=== PATIENT | male | born 1950 | race Hispanic/Latino ===

== ENCOUNTER 2018-01-25 04:02 | Observation (INO) | payer OTHER, MEDICARE ==
[~2018-01-25] VITALS: Ht 170.2 cm; Wt 99.3 kg
[2018-01-25] MEDS ORDERED: ASPIRIN 81 MG CHEW TAB PO ONE (04:30)
[2018-01-25 04:59] LABS: BASOPHILS # (AUTO) 0.1 (0.0-0.1); BASOPHILS % 0.6 % (0.0-1.0); EOSINOPHILS # (AUTO) 0.6 (0.0-0.4); EOSINOPHILS % 5.2 % (0.0-6.0); HEMATOCRIT 45.1 % (38.2-49.6); HEMOGLOBIN 15.3 g/dL (14.0-18.0); LYMPHOCYTES # (AUTO) 3.7 (1.0-3.2); LYMPHOCYTES % 34.4 % (18.0-39.1); MEAN CORPUSCULAR HEMOGLOBIN 29.5 pg (28-32); MEAN CORPUSCULAR HGB CONC 33.9 g/dL (31-35); MEAN CORPUSCULAR VOLUME 87.1 fL (81-99); MONOCYTES # (AUTO) 0.7 (0.2-0.8); MONOCYTES % 6.2 % (4.4-11.3); NEUTROPHILS # (AUTO) 5.7 (2.1-6.9); NEUTROPHILS % 53.3 % (38.7-80.0); PLATELET COUNT 249 x10e3/uL (140-360); RED BLOOD COUNT 5.18 x10e6/uL (4.3-5.7); RED CELL DISTRIBUTION WIDTH 13.2 % (11.7-14.4)
[2018-01-25 05:05] LABS: BILIRUBIN,URINE NEGATIVE (NEGATIVE); CLARITY,URINE CLEAR (CLEAR); COLOR,URINE YELLOW (YELLOW); KETONES,URINE NEGATIVE (NEGATIVE); LEUKOCYTE ESTERASE ,URINE NEGATIVE (NEGATIVE); NITRITE,URINE NEGATIVE (NEGATIVE); PROTEIN,URINE DIPSTICK NEGATIVE (NEGATIVE); URINE UROBILINOGEN 0.2 mg/dL (0.2 - 1); WBC,URINE (MAN) 0-5 /HPF (0-5)
[2018-01-25 05:06] LABS: MUCUS,URINE FEW (RARE)
[2018-01-25 05:10] LABS: INR 1.03; PROTHROMBIN TIME 12.7 seconds (11.9-14.5)
[2018-01-25 05:11] LABS: PARTIAL THROMBOPLASTIN TIME 29.2 seconds (23.8-35.5)
[2018-01-25 05:18] LABS: ALANINE AMINOTRANSFERASE 27 IU/L (0-55); ALBUMIN 3.9 g/dL (3.5-5.0); ALBUMIN/GLOBULIN RATIO 1.1 (0.8-2.0); ALKALINE PHOSPHATASE 85 IU/L (40-150); ANION GAP 16.2 mmol/L (8-16); BLOOD UREA NITROGEN 22 mg/dL (7-26); BUN/CREATININE RATIO 24 (6-25); CALCIUM 9.3 mg/dL (8.4-10.2); CARBON DIOXIDE 24 mmol/L (22-29); CHLORIDE 105 mmol/L (98-107); CREATINE KINASE 125 IU/L (30-200); CREATININE, SERUM 0.92 mg/dL (0.72-1.25); EST GLOMERULAR FILTRATION RATE > 60 ML/MIN (60-); GLUCOSE 106 mg/dL (74-118); MAGNESIUM 2.2 MG/DL (1.3-2.1); POTASSIUM 4.2 mmol/L (3.5-5.1); SODIUM 141 mmol/L (136-145)
[2018-01-25] MEDS ORDERED: TRAZODONE HCL150 MG PO (05:32)
[2018-01-25 05:37] LABS: THYROID STIMULATING HORMONE 1.919 uIU/mL (0.350-4.940)
--- NOTE | 2018-01-25 05:47 | Diagnostic Imaging Report ---
EXAM: CHEST SINGLE (PORTABLE), AP 1 view INDICATION: Elevated blood pressure, headache COMPARISON: None FINDINGS: LINES/TUBES: None LUNGS: No consolidations or edema. PLEURA: No effusions or pneumothorax. HEART AND MEDIASTINUM: Normal size and contour. BONES AND SOFT TISSUES: No acute findings. IMPRESSION: No acute thoracic abnormality. Signed by: Dr. Verenice Velazquez M.D. on 01/25/2018 5:43 AM
[2018-01-25] MEDS ORDERED: ONDANSETRON HCL INJ 2 MG/ML VIAL IV PRN (06:00)
[2018-01-25] MEDS ORDERED: MORPHINE SULFATE 2 MG/ML SYR IV PRN (06:00)
[2018-01-25 07:35] VITALS: BP 117/68
[2018-01-25 07:41] VITALS: BP 117/68
[2018-01-25 07:53] VITALS: BP 117/68
[2018-01-25] MEDS ORDERED: ASPIRIN 81 MG ENTERIC COATED PO SCH (09:00)
[2018-01-25] MEDS ORDERED: FAMOTIDINE 20 MG/2 ML VIAL IV SCH (09:00)
[2018-01-25 12:24] VITALS: BP 112/65
[2018-01-25 12:43] LABS: CREATINE KINASE 106 IU/L (30-200)
--- NOTE | 2018-01-25 13:40 | Consultation ---
DATE OF CONSULTATION: January 25, 2018 CARDIOLOGY CONSULTATION REASON FOR CONSULTATION: Chest pain. HISTORY OF PRESENT ILLNESS: Mr. Campbell is a 67-year-old gentleman who is at baseline otherwise relatively healthy. He has been complaining of several week onset of nighttime warmth, flushing in the face and associated with some slight shortness of breath and has to get up three to four times at night to put on the AC. He reports that these episodes have tend to occur especially at nighttime and has been slowly increasing in frequency. Yesterday, he also reported episode of chest discomfort that seems to be positional, tightness radiating across the chest and lasted several minutes not associated with any diaphoresis, nonexertional in nature and nonpruritic in nature. The pain largely subsided on its own and was only very mild according to the patient. He came to the hospital for further evaluation, but maintains that his main complaint is the overwhelming sensation of intermittent flushing in his face. Patient denies taking any supplements and denies any changes in dietary habits. He denies any unexplained weight loss or gain. He denies any rashes or skin breakdowns. He, in terms of health maintenance, has had a colonoscopy eight years ago, was found to have polyps, but has not had any repeat at that time. Patient does report having noted that the stream of his urine has gotten worse over time, but this has been a gradual issue consistent for perhaps prostatic hypertrophy. UA is unremarkable. Denies any fevers or chills. PAST MEDICAL HISTORY: None. PAST SURGICAL HISTORY: None. FAMILY HISTORY: Mother alive at 86, had hypertension, history of Sjogren with type 2 diabetes. Father alive at 86 with hypertension and paternal grandfather lived all the way to 103. There is no premature family history of coronary artery disease. SOCIAL HISTORY: He is a lifelong nonsmoker. Denies any alcohol or illicit drug use. ALLERGIES: NO KNOWN DRUG ALLERGIES. HOME MEDICATIONS: None. REVIEW OF SYSTEMS GENERAL: Positive for flushing. Denies any fevers or chills. Positive for some slight night sweats and heat intolerance. HEENT: No headaches, visual complaints, sore throat, or stuffy nose. RESPIRATORY: Denies any pleuritic chest pain or exertional dyspnea. CARDIOVASCULAR: As per HPI. Denies any palpitations, syncope, or near syncope. GI: Denies any abdominal pain, nausea, or vomiting. Does have hemorrhoids with some blood upon wiping, but this is chronic. : Positive for nocturia and decreased strength of urinary stream and BPH type symptoms. No pyuria. MUSCULOSKELETAL: Denies any back pains, knee pains and aches. PERIPHERAL VASCULAR: Denies any edema or typical claudication symptoms. NEUROLOGIC: Denies any focal weakness, numbness, tingling, seizures, headaches, TIA, or stroke. SKIN: No rashes. PHYSICAL EXAMINATION VITALS: Height of 67 inches, weight of 219 pounds, BMI is 34.3, temperature of 95.9, pulse of 57, respiratory rate 18, O2 sat 96% on room air, and blood pressure 117/68. GENERAL: This is a well-nourished, well-developed gentleman who is currently in no apparent distress. HEENT: Pupils equal, round and reactive to light. Extraocular movements are intact. Oropharynx is clear with fair to poor dentition. NECK: No elevation of jugular venous pulsation. No carotid bruit. No lymphadenopathy. CARDIOVASCULAR: Regular rate and rhythm. Normal S1 and S2. Soft 1/6 systolic murmur at the left lower sternal border. LUNGS: Clear to auscultation bilateral with good airy entry. ABDOMEN: Soft, nontender, and nondistended. Normoactive bowel sounds. No hepatosplenomegaly. BACK: No costovertebral angle tenderness. EXTREMITIES: Warm with 2+ bilateral radial pulses, 2+ bilateral femoral pulses, and 1 to 2+ bilateral pedal pulses. There is no edema. NEUROLOGIC: Cranial nerves II through XII are intact. Strength is 5/5 and grossly nonfocal. PSYCH: Normal fluent speech. Appropriate affect. No anxiety or delusions. LABS: White count 10.7, hemoglobin 15.3, hematocrit 45.1, and platelets of 249. Sodium 141, potassium 4.2, chloride 105, bicarb 24, BUN 22, creatinine 0.92, glucose of 106, calcium of 9.3, magnesium 2.2, AST 21, ALT 27, alkaline phosphatase 85, total bili 0.3, total protein 7.3, and albumin of 3.9. CK is 125, MB of 4, and troponin is less than 0.01. TSH is 1.919. INR is 1.03. UA shows 0-5 white cells. Chest x-ray is unremarkable. EKG reveals sinus rhythm, normal axis, and no ST-T wave changes. DIAGNOSES 1. Chest pain symptom, largely atypical. 2. Intermittent facial flushing and dyspnea. 3. Mild leukocytosis. 4. Benign prostatic hyperplasia symptoms by history. PLAN/RECOMMENDATIONS 1. From a cardiovascular standpoint, patient's symptom complex is largely atypical and with normal EKG and cardiac biomarkers and symptoms going on for several weeks. I do not think this is necessarily an acute coronary syndrome per se; however, he would benefit from ischemic risk stratification. 2. We will defer an ischemic risk stratification with a treadmill stress test as our current machine is out of service, here next time. 3. We will recommend echocardiogram workup. 4. We will followup on urine culture. 5. Telemetry monitoring thus far shows no atrial or unusual arrhythmias. 6. Overall, we will discuss with primary team. I believe further evaluation could be continued as an outpatient basis. 7. Patient may benefit from health maintenance update perhaps with colonoscopy, etc. Job#: [id number] CHARY
--- OUTSIDE RECORDS SUMMARY | 2018-02-22 04:10 | XMS REPORT ---
Author Author [facility] Address Unknown Phone Unavailable Care Team Providers Care Upholstery Restorer Name Role Phone Ted BUCIO Unavailable Unavailable Mimi RICHARDSON Unavailable Unavailable Problems This patient has no known problems. Allergies, Adverse Reactions, Alerts This patient has no known allergies or adverse reactions. Medications This patient has no known medications. Results Test Description Test Time Test Comments Text Results Atomic Results Result Comments CHEST 2 VIEWS 2018-01-26 03:06:00 [place] [address] Patient Name: GUSTAVO BARTH MR #: [id number] : 1950 Age/Sex: 67/M Req #: [id number] Adm Physician: Ordered by: DENI BUCIO MD Report #: [id number] Location: ER Room/Bed: Procedure: [id number] DX/CHEST 2 VIEWS Exam Date: Exam Time: REPORT STATUS: Signed EXAM: CHEST 2 VIEWS, PA and lateral INDICATION: Anxiety, shortness of breath COMPARISON: AP view of the chest January 25, 2018 FINDINGS: LINES/TUBES: None LUNGS: No consolidations or edema. PLEURA: No effusions or pneumothorax. HEART AND MEDIASTINUM: Normal size and contour. BONES AND SOFT TISSUES: No acute findings. IMPRESSION: No acute thoracic abnormality. Signed by: Dr. Gabby Velazquez M.D. on 01/26/2018 3:07 AM Dictated By: GABBY VELAZQUEZ MD 6 Transcribed By: RUSTY on 01/26/18306 COPY TO: DENI BUCIO MD CHEST SINGLE (PORTABLE) 2018-01-25 05:42:00 [place] [address] Patient Name: GUSTAVO BARTH MR #: [id number] : 1950 Age/Sex: 67/M Req #: [id number] Adm Physician: Ordered by: DENI BUCIO MD Report #: [id number] Location: ER Room/Bed: Procedure: [id number] DX/CHEST SINGLE (PORTABLE) Exam Date: 01/25/18 Exam Time: 0510 REPORT STATUS: Signed EXAM: CHEST SINGLE (PORTABLE), AP 1 view INDICATION: Elevated blood pressure, headache COMPARISON: None FINDINGS: LINES/TUBES: None LUNGS: No consolidations or edema. PLEURA: No effusions or pneumothorax. HEART AND MEDIASTINUM: Normal size and contour. BONES AND SOFT TISSUES: No acute findings. IMPRESSION: No acute thoracic abnormality. Signed by: Dr. Gabby Velazquez M.D. on 01/25/2018 5:43 AM Dictated By: GABBY VELAZQUEZ MD 2 Transcribed By: RUSTY on 01/25/18542 COPY TO: DENI BUCIO MD SHOULDER LEFT COMPLETE [place] [address] Patient Name: GUSTAVO BARTH MR #: [id number] : 1950 Age/Sex: 66/M Req #: [id number] Adm Physician: Ordered by: RIDDHI RICHARDSON MD Report #: [id number] Location: ER Room/Bed: Procedure: [id number] DX/SHOULDER LEFT COMPLETE Exam Date: 04/08/17 Exam Time: 2239 REPORT STATUS: Signed SHOULDER LEFT COMPLETE HISTORY: Status post fall COMPARISON: None FINDINGS: Bones: No displaced fracture. Osseous alignment is within normal limits. Joints: Mild degenerative changes of the left acromioclavicular joint Soft tissues: The soft tissues appear unremarkable. IMPRESSION: No acute radiographic abnormality. Signed by: Dr. Eugenio De M.D. on 04/08/2017 10:59 PM Dictated By: EUGENIO SCHWARTZ MD 58 Transcribed By: RUSTY on 04/08/172258 COPY TO: RIDDHI RICHARDSON MD CT BRAIN [place] [address] Patient Name: GUSTAVO BARTH MR #: [id number] : 1950 Age/Sex: 66/M Req #: [id number] Adm Physician: Ordered by: RIDDHI RICHARDSON MD Report #: [id number] Location: ER Room/Bed: Procedure: [id number] CT/CT BRAIN WO Exam Date: 04/08/17 Exam Time: 2226 REPORT STATUS: Signed EXAMINATION: Head CT without contrast. HISTORY:Status post fall. COMPARISON:None. TECHNIQUE: Multidetector axial images were obtained from the foramen magnum to the vertex without contrast. The images were reconstructed u sing brain and bone algorithms. Thin section brain images were reformatted into coronal and sagittal planes. Intravenous contrast: None IMAGE QUALITY: Acceptable. FINDINGS: Skull/scalp: No abnormality. Parenchyma: Focal hypodensity in posterior aspect of bilateral lentiform nucleus either represents prominent perivascular space or old lacunar infarct. No acute hemorrhage, mass or acute major vascular territorial infarct. Arteries: No density suggestive of thrombosis. Dural sinuses: No abnormal density suggestive of thrombosis. Ventricles: No hydrocephalus or displacement. Extra-axial spaces: No abnormal density. Brain volume: Moderate generalized, predominantly bilateral frontal cerebral volume loss. Craniocervical junction: No mass, Chiari malformation, or basilar invagination. Sella: No mass. Paranasal/mastoid sinuses: Imaged portions unremarkable. IMPRESSION: No acute intracranial abnormality, particularly no acute hemorrhage, mass or acute major vascular territorial infarct. Old lacunar infarct vs prominent perivascular space in bilateral lentiform nucleus. Moderate predominantly bilateral frontal cerebral volume loss. Signed by: Dr. Michelle Wu M.D. on 04/08/2017 11:04 PM Dictated By: MICHELLE WU MD 03 Transcribed By: RUSTY on 04/08/172303 COPY TO: RIDDHI RICHARDSON MD CT CERVICAL SPINE WO [place] [address] Patient Name: GUSTAVO BARTH MR #: [id number] : 1950 Age/Sex: 66/M Req #: [id number] Adm Physician: Ordered by: RIDDHI RICHARDSON MD Report #: [id number] Location: ER Room/Bed: Procedure: [id number] CT/CT CERVICAL SPINE WO Exam Date: 04/08/17 Exam Time: 2226 REPORT STATUS: Signed History: Status post fall. Comparison studies: None Technique: Axial images were obtained through the cervical region.. Coronal and sagittal images reconstructed from the axial data.. Intravenous contrast: None Findings: Fractures: None. Soft tissue injuries: None. Atlantoaxial articulation: Intact. Alignment: Loss of normal cervical lordosis is either positional or due to muscle spasm. No scoliosis. Cervicomedullary junction: No abnormalities. The foramen magnum is patent. Soft tissues: No abnormalities. Vertebrae: No fractures, infection or neoplasm. Degenerative changes: C2-C3: Severe left foraminal stenosis due to facet and uncovertebral arthrosis. C3-C4: Mild right and severe left foraminal stenosis due to facet and uncovertebral arthrosis. C4-C5: Posterior disc osteophyte complex results in mild canal stenosis. Mild right and severe left foraminal stenosis due to facet and uncovertebral arthrosis. C5-C6: Posterior disc osteophyte complex results in mild canal stenosis. Bilateral moderate foraminal stenosis due to facet and uncovertebral arthrosis. Moderate degenerative disc disease with decreased intervertebral disc space, endplate sclerosis and anterior vertebral osteophyte. C6-C7: Posterior disc osteophyte complex results in mild canal stenosis. Mild bilateral foraminal stenosis due to facet and uncovertebral arthrosis. Moderate degenerative disc disease with decreased intervertebral disc space, endplate sclerosis and anterior vertebral osteophyte. C7-T1: Mild left foraminal stenosis due to facet and uncovertebral arthrosis. IMPRESSION: 1. No acute cervical spine fracture. Loss of normal cervical lordosis is either positional or due to muscle spasm. 2. Ligament, spinal cord and or vascular abnormalities cannot be excluded on the basis of this examination. 3. Cervical spondylosis as detailed above. Signed by: Dr. Michelle Wu M.D. on 04/08/2017 11:11 PM Dictated By: MICHELLE WU MD 10 Transcribed By: RUSTY on 04/08/172310 COPY TO: RIDDHI RICHARDSON MD
--- NOTE | 2018-03-09 03:02 | Discharge Summary ---
CHIEF COMPLAINT: Chest discomfort. FINAL DIAGNOSES 1. Hypertension. 2. Atypical chest pain. A 67-year-old male, no known past medical history brought to the ER complaining of intermittent midsternal chest discomfort associated shortness of breath for 2 weeks. No relation to activity or food, has a positive family history of coronary artery disease. Noted to have a maternal uncle, who age in the 60s from an ID. Underwent review and evaluation in the emergency room. The patient admitted for treatment, evaluation regarding atypical chest pain, rule out ischemia questionable GERD. Will be admitted for observation. Will be monitoring cardiac enzymes. Requested cardiology follow. While in observation, EKGs are showing sinus bradycardia. He was given IV fluids. Given medications for pain management was given nitroglycerin 0.4 mg q.5 minutes x3 for chest pain. Also receiving medications to stabilize his BP. Cardiac was ruled out. He was cleared for release, to be followed out further on outpatient basis and the patient was discharged on 01/25/2018 in stable condition. With discharge, the patient will continue on a cardiac diet. No equipment or supplies necessary drains or James needed. Activity level was directed by me, as well as by Dr. Jasso. He will be following back up with Dr. Jasso in his office within 1 week to undergo an outpatient stress test. Patient will be following up back with me in my office within 1-2 weeks. No prescriptions were written at the time of discharge and it was noted the patient was taking no medications prior to admission. He was instructed that if he was to have further recurrence of similar symptoms before his follow up with myself or with Dr. Jasso that he needed to report to the emergency room. Dictated By: REBECA Saavedra Job#: [id number] CQ
== END 2018-01-25 13:48 | disposition home or self-care (01) ==
LOC: ER 04:02 → ERHOLD 05:55 → IMCU 06:21
DX: R07.89 Other chest pain (principal); I10 Essential (primary) hypertension; R00.1 Bradycardia, unspecified; D72.829 Elevated white blood cell count, unspecified; R23.2 Flushing; N40.0 Benign prostatic hyperplasia without lower urinary tract symptoms; Z82.49 Family history of ischemic heart disease and other diseases of the circulatory system
CPT/HCPCS: 36415; 71045; 80053; 81001; 82550; 82553; 83735; 84443; 84484; 85025; 85610; 85730; 87086; 93005; 94760; 99284; G0378

== ENCOUNTER 2018-01-25 22:57 | Emergency (ER) | payer OTHER ==
[~2018-01-25] VITALS: Ht 170.2 cm; Wt 99.3 kg
[~2018-01-25 22:57] MED LIST: TRAZODONE HCL150 MG PO
[2018-01-26 01:29] LABS: INR 1.04; PROTHROMBIN TIME 12.8 seconds (11.9-14.5)
[2018-01-26 01:30] LABS: PARTIAL THROMBOPLASTIN TIME 29.6 seconds (23.8-35.5)
[2018-01-26 01:37] LABS: CREATINE KINASE 133 IU/L (30-200)
[2018-01-26 01:46] LABS: BASOPHILS # (AUTO) 0.1 (0.0-0.1); BASOPHILS % 0.4 % (0.0-1.0); EOSINOPHILS # (AUTO) 0.5 (0.0-0.4); EOSINOPHILS % 3.8 % (0.0-6.0); HEMATOCRIT 45.1 % (38.2-49.6); HEMOGLOBIN 15.4 g/dL (14.0-18.0); LYMPHOCYTES # (AUTO) 2.8 (1.0-3.2); LYMPHOCYTES % 23.5 % (18.0-39.1); MEAN CORPUSCULAR HEMOGLOBIN 29.4 pg (28-32); MEAN CORPUSCULAR HGB CONC 34.1 g/dL (31-35); MEAN CORPUSCULAR VOLUME 86.2 fL (81-99); MONOCYTES # (AUTO) 0.7 (0.2-0.8); MONOCYTES % 6.1 % (4.4-11.3); NEUTROPHILS # (AUTO) 7.8 (2.1-6.9); PLATELET COUNT 279 x10e3/uL (140-360); RED BLOOD COUNT 5.23 x10e6/uL (4.3-5.7); RED CELL DISTRIBUTION WIDTH 13.3 % (11.7-14.4)
[2018-01-26 02:00] LABS: ALANINE AMINOTRANSFERASE 29 IU/L (0-55); ALBUMIN 4.2 g/dL (3.5-5.0); ALBUMIN/GLOBULIN RATIO 1.2 (0.8-2.0); ALKALINE PHOSPHATASE 83 IU/L (40-150); ANION GAP 16.9 mmol/L (8-16); BLOOD UREA NITROGEN 18 mg/dL (7-26); BUN/CREATININE RATIO 20 (6-25); CALCIUM 9.5 mg/dL (8.4-10.2); CARBON DIOXIDE 21 mmol/L (22-29); CHLORIDE 106 mmol/L (98-107); EST GLOMERULAR FILTRATION RATE > 60 ML/MIN (60-); GLUCOSE 100 mg/dL (74-118); POTASSIUM 3.9 mmol/L (3.5-5.1); SODIUM 140 mmol/L (136-145)
--- NOTE | 2018-01-26 03:11 | Diagnostic Imaging Report ---
EXAM: CHEST 2 VIEWS, PA and lateral INDICATION: Anxiety, shortness of breath COMPARISON: AP view of the chest January 25, 2018 FINDINGS: LINES/TUBES: None LUNGS: No consolidations or edema. PLEURA: No effusions or pneumothorax. HEART AND MEDIASTINUM: Normal size and contour. BONES AND SOFT TISSUES: No acute findings. IMPRESSION: No acute thoracic abnormality. Signed by: Dr. Verenice Velazquez M.D. on 01/26/2018 3:07 AM
[2018-01-26] MEDS ORDERED: DIAZEPAM 5 MG TAB PO STA (03:14)
== END 2018-01-26 03:27 | disposition home or self-care (01) ==
LOC: ER 22:57
DX: R06.00 Dyspnea, unspecified (principal); F41.1 Generalized anxiety disorder
CPT/HCPCS: 36415; 71046; 80053; 82550; 82553; 84484; 85025; 85379; 85610; 85730; 93005; 99284

== ENCOUNTER 2019-09-17 11:38 | Emergency (ER) | payer MEDICARE, OTHER ==
[~2019-09-17] VITALS: Ht 172.7 cm; Wt 88.9 kg
--- OUTSIDE RECORDS SUMMARY | 2019-09-17 11:42 | XMS REPORT ---
Author Author GUSTAVO KING Organization Unknown Address Unknown Phone Care Team Providers Care Crusher Dry Ground Mica Name Role Phone FERNANDO LILY PP Unavailable Reason for Referral No Reason for Referral was given. History of Present Illness No HPI available. Problems * Normal Routine History And Physical Adult (V70.0); (Active) * Allergic Rhinitis (477.9); (Active) * Insomnia (780.52); (Active) Medication * TraZODone HCl 150 MG Oral Tablet; TAKE 1 TABLET 30 MINUTES BEFORE BEDTIME NEEDED FOR INSOMINIA; Start Date: 07/20/2013; End Date: (Active) * Padmini-D Allergy & Congestion 60-120 MG Oral Tablet Extended Release 12 Hour; TAKE 1 TABLET EVERY 12 HOURS.; Start Date: 08/28/2013 (Active) Allergies and Adverse Reactions * No Known Drug Allergies (Active) Past Medical History * History of Carpal Tunnel Syndrome (354.0); (Resolved) * History of Sciatica (724.3); (Resolved) Family History * Maternal history of Coronary Artery Disease (V17.49); (Active) * Maternal history of Diabetes Mellitus (V18.0); (Active) * Maternal history of Hypertension (V17.49); (Active) Social History * No History of Alcohol Use (Denied) * No History of Drug Use (Denied) * Marital History - Currently (Active) * No History of Tobacco Use (Denied) * 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 Encounters * AUDIT 08/30/2013
--- OUTSIDE RECORDS SUMMARY | 2019-09-17 11:42 | XMS REPORT | Summary of Care ---
Author Author GUSTAVO Lee LVN Organization Unknown Address Unknown Phone Unavailable Care Team Providers Care Napkin Machine Operator Name Role Phone ARMANI Lira, SARABJIT Jesus Unavailable Ayah Lee LVN Unavailable Unavailable ARMANI COLON DCSARABJIT Unavailable Unavailable RIDDHI FORD M.D. 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 * Quantity: 14 Refills: 0 SARABJIT LOMELI M.D. * Start : 08-Feb-2018 Active Omeprazole 40 MG Oral Capsule Delayed Release TAKE 1 CAPSULE DAILY * Quantity: 30 Refills: 0 SARABJIT LOMELI M.D. * Start : 08-Feb-2018 Active Allergies and Adverse Reactions Name Dates Details No Known Drug Allergies (Allergy) Status : Active Past Medical History Name Dates Details History of sciatica (V12.49, Z86.69) Status: Resolved Procedures Procedure Dates Details EMG/NCS-Arm Date: 08-Feb-2018 XRAY Spine cervical 2 or 3 view 18065 Date: 08-Feb-2018 History of No history of surgery Complet ed Immunization Name Dates Details Immunizations not documented Family History Name Dates Details Family history of Coronary Artery Diseas e (V17.49) Status: Active Family history of Diabetes Mellitus (V18 .0) Status: Active Family history of Hypertension (V17.49) Status: Active Family history of chronic obstructive pu lmonary disease (V17.6, Z82.5) Status: Active Family history of cerebrovascular accide nt (CVA) (V17.1, Z82.3) Status: Active Social History Name Dates Details - Status: Name Dates Details Never smoker Vital Signs Date Test Result Details 08-Feb-20189:50 BP Systolic 106 mm[Hg] Status: Comments: Lo cation: LUE; Position: Sitting BP Diastolic 62 mm[Hg] Status: Comments: Lo cation: LUE; Position: Sitting Physical Findings 8 Status: Comments: PH Q-9 Adult Depression Screening Height 67 in Status: Weight 186.9 lb Status: Body Mass Index Calculated 29.27 kg/m2 Status: Body Surface Area Calculated 1.96 m2 Status: Temperature 98.4 f Status: Comments: Me thod: Oral Heart Rate 66 /min Status: Respiration Rate 16 /min Status: Physical Findings 0 Status: Comments: Al cohol Screen - How many times in the past yr have you had 5 (for M) or 4 (for F) or 4 (for all > 65yrs) or more drinks in a day? Physical Findings 4 Status: Comments: Pa in Scale Results Date Description Value Details Results not documented Plan of Care Name Dates Details Planned Observations Planned Goals not documented Planned Encounters Appointment; SARABJIT LOMELI M.D. On: 28-Feb-2018 14:15 Interventions Provided Labs/Procedures/Imaging* EMG/NCS-Arm; To Be Done: 08 Feb 2018 Instructions Name Dates Details Instructions not documented Encounters Appointment; SARABJIT LOMELI M.D. Encounter Diagnosis: Problem not documented On: 08-Feb-2018 9:30 Appointment; SARABJIT LOMELI M.D. Encounter Diagnosis: Problem not documented On: 08-Feb-2018 9:30
--- OUTSIDE RECORDS SUMMARY | 2019-09-17 11:42 | XMS REPORT ---
Author Author GUSTAVO Odom Organization Unknown Address Unknown Phone Care Team Providers Care Director Of Technology Name Role Phone LeiAbdiasGail PP Unavailable Reason for Referral No Reason for Referral was given. History of Present Illness No HPI available. Problems * Normal Routine History And Physical Adult (V70.0); (Active) * Hypertension (401.9); (Active) * Allergic Rhinitis (477.9); (Active) * Insomnia (780.52); (Active) Medication * TraZODone HCl 100 MG Oral Tablet; TAKE ONE TABLET BY MOUTH AT BEDTIME NEEDED FOR SLEEPoffice visit required; Start Date: 07/20/2013; End Date: (Active) Allergies and Adverse Reactions * No Known Drug Allergies (Active) Past Medical History * History of Carpal Tunnel Syndrome (354.0); (Resolved) * History of Sciatica (724.3); (Resolved) * History of Upper Respiratory Infection (465.9); (Resolved) * History of Vertigo (780.4); (Resolved) Family History * Maternal history of Coronary Artery Disease (V17.49); (Active) * Maternal history of Diabetes Mellitus (V18.0); (Active) * Maternal history of Hypertension (V17.49); (Active) Social History * No History of Alcohol Use (Denied) * No History of Drug Use (Denied) * Marital History - Currently (Active) * No History of Tobacco Use (Denied) * 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 Encounters * AUDIT 07/20/2013
--- OUTSIDE RECORDS SUMMARY | 2019-09-17 11:42 | XMS REPORT | Continuity of Care Document ---
Author Author [employer], GUSTAVO Casey Organization [employer] Address Unknown Phone Unavailable Care Team Providers Care Tool Procurement Coordinator Name Role Phone [employer] Unavailable Un available Problems Problem Status Onset Date Classification Date Reported Comments Source Allergic Rhinitis Active 08/30/2013 [facility] Insomnia Active 08/30/2013 [facility] Hypertension Active 07/20/2013 [facility] Medications Medication Details Route Status Patient Instructions Ordering Provider Order Date Source Padmini-D Allergy & Congestion 60-120 MG Oral Tablet Extended Release 12 Hour ; Start Date: 08/28/2013 (Active) Active 08/28/2013 [facility] TraZODone HCl 150 MG Oral Tablet ; Start Date: 07/20/2013; End Date: (Active) Active 07/20/2013 [facility] TraZODone HCl 100 MG Oral Tablet ; Start Date: 07/20/2013; End Date: (Active) Active 07/20/2013 [facility] Allergies, Adverse Reactions, Alerts Substance Category Reaction Severity Reaction type Status Date Reported Comments Source No Known Drug Allergies drug a llergy drug aller gy Active [facility] Immunizations No Data Provided for This Section Results No Data Provided for This Section Pathology Reports No Data Provided for This Section Diagnostic Reports No Data Provided for This Section Consultation Notes No Data Provided for This Section Discharge Summaries No Data Provided for This Section History and Physicals No Data Provided for This Section Vital Signs No Data Provided for This Section Encounters Location Location Details Encounter Type Encounter Number Reason For Visit Attending Provider ADM Date DC Date Status Source AUDIT [id number] 07/20/2013 07/20/2013 [facility] AUDIT [id number] 08/30/2013 08/30/2013 [facility] Procedures No Data Provided for This Section Assessment and Plan No Data Provided for This Section Plan of Care No Data Provided for This Section Social History Social History Date Source No History of Alcohol Use (Denied ) No History of Drug Use (Denied) Marital History - Currently (Active) No History of Tobacco Use (Denied) 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 08/30/2013 [facility] Advance Directives Advance Dir ectives No Advance Directives available. 07/20/2013 [facility] Functional Status No Data Provided for This Section
--- NOTE | 2019-09-17 12:28 | Diagnostic Imaging Report ---
EXAMINATION: CT of the abdomen and pelvis without contrast. TECHNIQUE: Helical CT images of the abdomen and pelvis were performed from the lung bases to the lesser trochanters. No intravenous contrast was given per renal stone protocol. Coronal and sagittal reformatted images were obtained. Dose modulation, iterative reconstruction, and/or weight based adjustment of the mA/kV was utilized to reduce the radiation dose to as low as reasonably achievable. COMPARISON: None. CLINICAL HISTORY:Pain DISCUSSION: ABSENCE OF INTRAVENOUS CONTRAST DECREASES SENSITIVITY FOR DETECTION OF FOCAL LESIONS AND VASCULAR PATHOLOGY. ABDOMEN/PELVIS: LOWER THORAX: Left lower lobe pneumonia HEPATOBILIARY:Hepatic steatosis. No biliary ductal dilation. The gallbladder is normal. SPLEEN: No splenomegaly. PANCREAS: No focal masses or ductal dilatation. ADRENALS: No adrenal nodules. KIDNEYS/URETERS: No hydronephrosis, stones, or solid mass lesions. PELVIC ORGANS/BLADDER: The bladder is normal. PERITONEUM/RETROPERITONEUM: No free air or fluid. LYMPH NODES: No intra-abdominal,retroperitoneal, pelvic or inguinal lymphadenopathy. VESSELS: Limited evaluation GI TRACT: No distention or wall thickening. Diverticulosis without inflammatory change. Appendix is normal. BONES AND SOFT TISSUES: No bony destructive lesions. No soft tissue abnormalities. IMPRESSION: Left lower lobe pneumonia Diverticulosis without inflammatory change Signed by: Dr. Kiet Lam M.D. on 09/17/2019 12:24 PM
[2019-09-17] MEDS ORDERED: LEVAQUIN500 MG PO (12:52)
[2019-09-17] MEDS ORDERED: LEVSIN-SL0.125 MG SL (12:54)
[2019-09-17 13:00] VITALS: BP 110/73
== END 2019-09-17 13:12 | disposition home or self-care (01) ==
LOC: FSED 11:38
DX: R10.13 Epigastric pain (principal); R11.2 Nausea with vomiting, unspecified; R19.7 Diarrhea, unspecified
CPT/HCPCS: 74176; 80048; 80076; 81003; 85025; 99284

== ENCOUNTER 2019-09-21 21:18 | Emergency (ER) | payer MEDICARE, OTHER ==
[~2019-09-21] VITALS: Ht 172.7 cm; Wt 88.9 kg
[~2019-09-21 21:18] MED LIST changes: +LEVAQUIN500 MG PO; +LEVSIN-SL0.125 MG SL
--- OUTSIDE RECORDS SUMMARY | 2019-09-21 21:21 | XMS REPORT | Continuity of Care Document ---
Author Author [employer], GUSTAVO Casey Organization [employer] Address Unknown Phone Unavailable Care Team Providers Care Pediatric Psychologist Name Role Phone [employer] Unavailable Un available Problems Problem Status Onset Date Classification Date Reported Comments Source Allergic Rhinitis Active 08/30/2013 [facility] Insomnia Active 08/30/2013 [facility] Hypertension Active 07/20/2013 [facility] Medications Medication Details Route Status Patient Instructions Ordering Provider Order Date Source Padmini-D Allergy & Congestion 60-120 MG Oral Tablet Extended Release 12 Hour ; Start Date: 08/28/2013 (Active) Active 08/28/2013 [facility] TraZODone HCl 150 MG Oral Tablet ; Start Date: 07/20/2013; End Date: (Active) Active 07/20/2013 [facility] TraZODone HCl 100 MG Oral Tablet ; Start Date: 07/20/2013; End Date: (Active) Active 07/20/2013 [facility] Allergies, Adverse Reactions, Alerts Substance Category Reaction Severity Reaction type Status Date Reported Comments Source No Known Drug Allergies drug a llergy drug aller gy Active [facility] Immunizations No Data Provided for This [...] ADM Date DC Date Status Source AUDIT [id number] 07/20/2013 07/20/2013 [facility] AUDIT [id number] 08/30/2013 08/30/2013 [facility] Procedures No Data Provided for This Section Assessment and Plan No Data Provided for This Section Plan of Care No Data Provided for This Section Social History Social History Date Source No History of Alcohol Use (Denied ) No History of Drug Use (Denied) Marital History - Currently (Active) No History of Tobacco Use (Denied) 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 08/30/2013 [facility] Advance Directives Advance Dir ectives No Advance Directives available. 07/20/2013 [facility] Functional Status No Data Provided for This Section
--- OUTSIDE RECORDS SUMMARY | 2019-09-21 21:21 | XMS REPORT ---
Author Author [facility] t Organization [facility] Address [address] [place] [address] Phone Unavailable Care Team Providers Care Flight Crew Scheduler Name Role Phone MD ANNA MARIE VALENZUELA PCP KANIKA NELSON Attphys Unavailable SARABJIT LOMELI M.D. Attphys Unavailable Ted BUCIO Attphys Unavailable Mimi RICHARDSON Attphys Unavailable Payers Payer Name Policy Type Policy Number Effective Date Expiration Date S ource Advance Directives Directive Decision Effective Date Termination Date Comments Sour ce Yes N/A [facility] Problems Condition Name Condition Details Condition Category Status Onset Date Resolution Date Last Treatment Date Treating Clinician Comments Source History of sciatica History of sciatica Problem HL7.CCDAR2 Resolved [facility] Insomnia Insomnia Problem HL7.CCDAR2 Active [facility] Allergic rhinitis Allergic rhinitis Problem HL7.CCDAR2 Active [facility] Left shoulder pain Left shoulder pain Problem HL7.CCDAR2 Active [facility] Cervical radiculopathy Cervical radiculopathy Problem HL7.CCDAR2 Active [facility] 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 Family History Family Member Diagnosis Comments Start Date Stop Date Source Mother Family history of Coronary Artery Disease [facility] Mother Family history of Diabetes Mellitus [facility] Mother Family history of Hypertension [facility] Mother Family history of chronic obstructive pulmonary disease [facility] Mother Family history of cerebrovascular accident (CVA) [facility] Social History Social Habit Start Date Stop Date Quantity Comments Source Sex Assigned At 1950 00:00:00 1950 00:00:00 Male [facility] Smoking Status Start Date Stop Date Source Never smoker [facility] Medications Ordered Medication Name Filled Medication Name Start Date Stop Da te Current Medication? Ordering Clinician Indication Dosage Frequency Signature (SIG) Comments Components Source Hyoscyamine Sulfate (Levsin-Sl) 0.125 Mg TAB.SUBL Hyos cyamine Sulfate (Levsin- Sl) 0.125 Mg TAB.SUBL 2019-09-17 12:54:00 Yes .125 [facility] Levofloxacin (Levaquin) 500 Mg TABLET Levofloxacin (Levaquin ) 500 Mg TABLET 2019-09-17 12:52:00 Yes 500 [facility] Meloxicam 15 MG Oral Tablet Meloxicam 15 MG Oral Tablet 2018-02-08 00:00:00 Yes SARABJIT LOMELI M.D. QD TAKE 1 TABLET DAILY WITH FOOD . [facility] Omeprazole 40 MG Oral Capsule Delayed Release Omeprazo le 40 MG Oral Capsule Delayed Release 2018-02-08 00:00:00 Yes SARABJIT LOMELI M.D. 1 QD TAKE 1 CAPSULE DAILY [facility] HydrOXYzine HCl - 50 MG Oral Tablet HydrOXYzine HCl - 50 MG Oral Tabl et Yes TAKE 1 TABLET EVERY 6 HOURS NEEDED- P RESCRIBED IN PATIENTS ER [facility] TraMADol HCl - 50 MG Oral Tablet TraMADol HCl - 50 MG Oral Tablet Yes TAKE 1/2 TO 1 TABLET DAILY NEEDED- PRESCRIBED BY ORTHO [facility] Trazodone Hcl Trazodone Hcl Yes 150 [facility] Vital Signs Vital Name Observation Time Observation Value Comments Source Body Temperature 2019-09-17 13:00:00 98.2 [degF] [facility] Weight 2019-09-17 11:44:00 196 [lb_av] [facility] BMI (Body Mass Index) 2019-09-17 11:44:00 29.8 kg/m2 [facility] BP Systolic 2018-02-08 09:50:00 106 mm[Hg] Location: BRETT Perez on: Sitting [facility] BP Diastolic 2018-02-08 09:50:00 62 mm[Hg] Location: MARLO; Chris on: Sitting [facility] Height 2018-02-08 09:50:00 67 [in_us] [facility] Weight 2018-02-08 09:50:00 186.9 [lb_av] [facility] Body Mass Index Calculated 2018-02-08 09:50:00 29.27 kg/m2 [facility] Temperature 2018-02-08 09:50:00 98.4 [degF] Method: Oral [facility] Heart Rate 2018-02-08 09:50:00 66 /min [facility] Respiration Rate 2018-02-08 09:50:00 16 /min [facility] Procedures Procedure Date / Time Performed Performing Clinician [facility] EMG/NCS-Arm 2018-02-08 00:00:00 [facility] XRAY Spine cervical 2 or 3 view [id number] 2018-02-08 00:00:00 [facility] Plan of Care Planned Activity Planned Date Details Comments Source Goal Patient referral [code = 5251708 ] [facility] Goal Patient referral [code = 1979627 ] [facility] Instructions Abdominal Pain - Adult [facility] Encounters Start Date/Time End Date/Time Encounter Type Admission Type Attendi [facility] Emergency Department Facility Care Department Encounter ID Source 2019-09-17 11:38:00 2019-09-17 13:12:00 Departed Emergency Room 1 KANIKA NELSON [facility] [id number] I [facility] 2018-02-08 09:30:00 2018-02-08 09:30:00 Appointment; SARABJIT LOMELI M.D. WALTON, HAROLD, M.D. [facility] [address] [id number] [facility] 2018-02-08 09:30:00 2018-02-08 09:30:00 Appointment; SARABJIT LOMELI M.D. WALTON, HAROLD, M.D. [facility] [id number] [facility] 2018-01-25 22:57:00 2018-01-26 03:27:00 Departed Emergency Room 1 [facility] [id number] [facility] 2018-01-25 05:55:00 2018-01-25 13:48:00 Discharged Inpatient (obs) 1 [facility] [id number] [facility] 2017-04-08 21:42:00 2017-04-09 01:56:00 Departed Emergency Room ER RIDDHI RICHARDSON [facility] [id number] [facility] 2013-08-30 12:03:24 2013-08-30 12:03:24 Outpatient [facility] [id number] 2013-07-20 09:18:02 2013-07-20 09:18:02 Outpatient [facility] [id number] Results Test Description Test Time Test Comments Results Result Comments Source CT ABD/PEL WO CONTRAST-HOPD 2019-09-17 12:20:00 [place] [address] Patient Name: GUSTAVO BARTH MR #: [id number] : 1950 Age/Sex: 69/M Req #: [id number] Adm Physician: Ordered by: KANIKA NELSON MD Report #: [id number] Location: [facility] Room/Bed: Procedure: [id number] HOPD/CT ABD/PEL WO CONTRAST-HOPD Exam Date: 09/17/19 Exam Time: 1210 REPORT STATUS: Signed EXAMINATION: CT of the abdomen and pelvis without contrast. TECHNIQUE: Helical CT images of the abdomen and pelvis were performed from the lung bases to the lesser trochanters. No intravenous contrast was given per renal stone protocol. Coronal and sagittal reformatted images were obtained. Dose modulation, iterative reconstruction, and/or weight based adjustment of the mA/kV was utilized to reduce the radiation dose to as low as reasonably achievable. COMPARISON: None. CLINICAL HISTORY:Pain DISCUSSION: ABSENCE OF INTRAVENOUS CONTRAST DECREASES SENSITIVITY FOR DETECTION OF FOCAL LESIONS AND VASCULAR PATHOLOGY. ABDOMEN/PELVIS: LOWER THORAX: Left lower lobe pneumonia HEPATOBILIARY:Hepatic steatosis. No biliary ductal dilation. The gallbladder is normal. SPLEEN: No splenomegaly. PANCREAS: No focal masses or ductal dilatation. ADRENALS: No adrenal nodules. KIDNEYS/URETERS: No hydronephrosis, stones, or solid mass lesions. PELVIC ORGANS/BLADDER: The bladder is normal. PERITONEUM/RETROPERITONEUM: No free air or fluid. LYMPH NODES: No intra-abdominal,retroperitoneal, pelvic or inguinal lymphadenopathy. VESSELS: Limited evaluation GI TRACT: No distention or wall thickening. Diverticulosis without inflammatory change. Appendix is normal. BONES AND SOFT TISSUES: No bony destructive lesions. No soft tissue abnormalities. IMPRESSION: Left lower lobe pneumonia Diverticulosis without inflammatory change Signed by: Dr. Jay Mccracken M.D. on 09/17/2019 12:24 PM Dictated By: JAY MCCRACKEN MD 1224 Transcribed By: RUSTY on 09/17/19 1221 COPY TO: KANIKA NELSON MD CHEST 2 VIEWS 2018-01-26 03:06:00 [facility] [address] [place] [address] Patient Name: GUSTAVO BARTH MR #: [id number] : 1950 Age/Sex: 67/M Req #: [id number] Adm Physician: Ordered by: DENI BUCIO MD Report #: [id number] Location: ER Room/Bed: Procedure: [id number] DX/CHEST 2 VIEWS Exam Date: Exam Time: [...] BUCIO MD CHEST SINGLE (PORTABLE) 2018-01-25 05:42:00 [place] [address] Patient Name: GUSTAVO BARTH MR #: [id number] : 1950 Age/Sex: 67/M Req #: [id number] Adm Physician: Ordered by: DENI BUCIO MD Report #: [id number] Location: ER Room/Bed: Procedure: [id number] DX/CHEST SINGLE (PORTABLE) Exam Date: 01/25/18 Exam Time: 05 REPORT STATUS: Signed EXAM: CHEST SINGLE (PORTABLE), [...] 5:43 AM Dictated By: GABBY VELAZQUEZ MD Transcribed By: RUSTY on 01/25/18542 COPY TO: DENI BUCIO MD SHOULDER LEFT COMPLETE [place] [address] Patient Name: GUSTAVO BARTH MR #: [id number] : 1950 Age/Sex: 66/M Req #: [id number] Adm Physician: Ordered by: RIDDHI RICHARDSON MD Report #: [id number] Location: ER Room/Bed: Procedure: [id number] DX/SHOULDER LEFT COMPLETE Exam Date: 04/08/17 Exam [...] COPY TO: RIDDHI RICHARDSON MD CT BRAIN WO [place] [address] Patient Name: GUSTAVO BARTH MR #: [id number] : 1950 Age/Sex: 66/M Req #: [id number] Adm Physician: Ordered by: RIDDHI RICHARDSON MD Report #: [id number] Location: ER Room/Bed: Procedure: [id number] CT/CT BRAIN WO Exam Date: 04/08/17 Exam [...] RIDDHI RICHARDSON MD CT CERVICAL SPINE WO [place] [address] Patient Name: GUSTAVO BARTH MR #: [id number] : 1950 Age/Sex: 66/M Req #: [id number] Adm Physician: Ordered by: RIDDHI RICHARDSON MD Report #: [id number] Location: ER Room/Bed: Procedure: [id number] CT/CT CERVICAL SPINE WO Exam Date: 04/08/17 [...]
[2019-09-21] MEDS ORDERED: SODIUM CHLORIDE 0.9% 1000ML 1,000 ML IV STA (21:33)
[2019-09-21] MEDS ORDERED: ONDANSETRON HCL INJ 2MG/ML 2ML 2 MG/ML VIAL IV NR (21:45)
[2019-09-21] MEDS ORDERED: ONDANSETRON HCL INJ 2MG/ML 2ML 2 MG/ML VIAL ONE (21:55)
[2019-09-21] MEDS ORDERED: SODIUM CHLORIDE 0.9% 1000ML 1,000 ML ONE (21:56)
[2019-09-21] MEDS ORDERED: DONNATAL/LIDOCAINE/MAALOX 30 ML SUSP PO ONE (22:45)
--- NOTE | 2019-09-21 22:49 | Emergency Department Note ---
History of Present Illnes History of Present Illness Chief Complaint: Abdominal Complaints History of Present Illness This is a 69 year old male with abdominal pain for one week, seen here and had abd ct done which was negative, Patient was discharged on Levaquin and Bentyl. Historian: Patient Arrival Mode: Car Onset (how long ago): week(s) (1) Location: epigastric Quality: cramping Radiation: non-radiation Severity: moderate Onset quality: gradual Duration (how long): week(s) (1) Timing of current episode: intermittent Progression: waxing and waning Chronicity: new Relieving factors: none Exacerbating factors: none Associated symptoms: other (vomiting and diarrhea) Treatments prior to arrival: none Past Medical/Family History Physician Review I have reviewed the patient's past medical and family history. Any updates have been documented here. Past Medical History Recent Fever: No Clinical Suspicion of Infectio: No New/Unexplained Change in Ment: No Past Medical History: None, Diabetes Past Surgical History: None Social History Smoking Cessation: Never Smoker Counseling Performed: No Alcohol Use: None Any Illegal Drug Use: No TB Exposure/Symptoms: No Physically hurt or threatened: No Other Last Tetanus: UNK Any Pre-Existing Lines (PICC,: No Is patient up to date on immun: No Last Flu: NO Last Pneumovax: NO Review of Systems Review of Systems Constitutional: no symptoms EENTM: no symptoms Cardiovascular: no symptoms Respiratory: no symptoms Gastrointestinal: no symptoms, abdominal pain, diarrhea, nausea, vomiting Genitourinary: no symptoms Musculoskeletal: no symptoms Neurological: no symptoms Psychological: no symptoms Endocrine: no symptoms Hematological/Lymphatic: no symptoms Review of other systems All other systems reviewed and negative. Physical Exam Related Data Allergies: Coded Allergies: No Known Allergies (Unverified , 04/08/17) Triage Vital Signs Vital Signs Date Time Temp Pulse Resp B/P (MAP) Pulse Ox O2 Delivery O2 Flow Rate FiO2 09/21/19 21:20 98.6 95 16 163/85 95 Vital signs reviewed: Yes Physical Exam CONSTITUTIONAL Constitutional: well-developed, well-nourished HENT HENT: normocephalic, atraumatic, oropharynx clear/moist, nose normal HENT L/R: left ext ear normal, right ext ear normal EYES Eyes: PERRL, conjunctivae normal NECK Neck: ROM normal PULMONARY Pulmonary: effort normal, breath sounds normal CARDIOVASCULAR Cardiovascular: regular rhythm, heart sounds normal, capillary refill normal, normal rate GASTROINTESTINAL Abdominal: soft, bowel sounds normal, tender (epigastric) GENITOURINARY Genitourinary: exam deferred SKIN Skin: warm, dry MUSCULOSKELETAL Musculoskeletal: ROM normal NEUROLOGICAL Neurological: alert, oriented x 3, no gross motor or sensory deficits PSYCHOLOGICAL Psychological: mood/affect normal, judgement normal Results Laboratory Lab results reviewed: Yes Imaging Imaging results reviewed: Yes Critical Care Time Subsequent provider I assumed direction of critical care for this patient from another provider of my specialty. Assessment & Plan Assessment & Plan Problems: (1) Diarrhea (2) Vomiting (3) Abdominal pain, acute, epigastric Reassessment Reassessment time: 22:48 Reassessment improved Depart Disposition: HOME, SELF-CARE Last Vital Signs Date Time Temp Pulse Resp B/P (MAP) Pulse Ox O2 Delivery O2 Flow Rate FiO2 09/21/19 21:20 98.6 95 16 163/85 95 Home Meds Active Scripts Hyoscyamine Sulfate (LEVSIN-SL) 0.125 Mg Tab.subl, 0.125 MG SL Q8HR PRN for CRAMPS, #14 TAB Prov:KANIKA NELSON MD 09/17/19 Levofloxacin (LEVAQUIN) 500 Mg Tablet, 500 MG PO DAILY, #7 TAB 0 Refills Prov:KANIKA NELSON MD 09/17/19 Reported Medications Trazodone Hcl (TRAZODONE HCL) 150 Mg Tablet, 150 MG PO HS PRN for SLEEP, #90 01/25/18 Medications in the ED Ondansetron HCl 4 mg NOW IV Last administered on 09/21/19at 21:56; Admin Dose 4 MG; Start 09/21/19 at 21:45; Stop 09/21/19 at 22:59 Sodium Chloride 1,000 ml @ 0 mls/hr Q0M STAT IV Last administered on 09/21/19at 21:56; Admin Dose 1,000 MLS/HR; Start 09/21/19 at 21:33; Stop 09/21/19 at 22:01; Status DC Ondansetron HCl 4 mg STK-MED ONCE .ROUTE ; Start 09/21/19 at 21:55; Stop 09/21/19 at 21:52; Status DC Sodium Chloride 1,000 ml @ ud STK-MED ONCE .ROUTE ; Start 09/21/19 at 21:56; Stop 09/21/19 at 21:52; Status DC Belladonna Alkaloids/ Phenobarbital 5 ml ONCE ONCE PO ; Start 09/21/19 at 22:45; Stop 09/21/19 at 22:46; Status KANIKA CHIANG MD September 21, 2019 22:49
[2019-09-21] MEDS ORDERED: LIDOCAINE VISC 2% SOLN 15 ML UDC ONE (22:53)
[2019-09-21] MEDS ORDERED: BELLADONNA ALK/PHENOBARBITAL 5 ML UDC ONE (22:54)
[2019-09-21] MEDS ORDERED: MAGNESIUM/ALUMINUM/SIMETHICONE 30 ML UDC ONE (22:54)
--- NOTE | 2019-09-21 23:09 | Diagnostic Imaging Report ---
EXAM: Complete Abdominal Ultrasound INDICATION: ^pain COMPARISON: None. TECHNIQUE: Transverse and longitudinal images of the upper abdomen were obtained. FINDINGS: The technologist reports a technically difficult study due to bowel gas and body habitus. Liver: Size: 14.2 cm in the right midclavicular line, normal Appearance: Increased echogenicity, smooth contour Mass: No focal masses Spleen: Size: 8.9 cm in length, normal Echogenicity: Normal Mass: No focal masses Gallbladder: Stones/Sludge: Shadowing stones and/or sludge Wall: 0.2 cm Appearance: Contracted Sonographic James's Sign: Negative Bile Ducts: Intrahepatic Ducts: No dilatation Extrahepatic Ducts: Common bile duct measures 0.4 cm, no dilatation Pancreas: Poorly visualized due to overlying bowel gas. Right Kidney: Size: 11.5 x 5.4 x 5.2 cm Echogenicity: Normal Parenchymal thickness: Normal Collecting System: No hydronephrosis Stone: None Cyst/Mass: None Left Kidney: Size: 11.5 x 5.7 x 5.4 cm Echogenicity: Normal Parenchymal thickness: Normal Collecting System: No hydronephrosis Stone: None Cyst/Mass: None Vessels: Aorta: Visualized portions are normal Inferior Vena Cava: Visualized portions are normal Main Portal Vein: 1.1 cm, normal size with hepatopetal flow. Free Fluid: No ascites or pleural effusion IMPRESSION: Technically difficult study due to bowel gas and patient body habitus. Contracted gallbladder with sludge and/or stones. No specific evidence of acute cholecystitis. Fatty infiltration of the liver. Signed by: Justin Armenta MD on 09/21/2019 11:06 PM
[2019-09-21 23:14] VITALS: BP 157/82
== END 2019-09-21 23:17 | disposition home or self-care (01) ==
LOC: FSED 21:18
DX: R10.13 Epigastric pain (principal); R11.2 Nausea with vomiting, unspecified; R19.7 Diarrhea, unspecified; E11.9 Type 2 diabetes mellitus without complications
CPT/HCPCS: 76700; 80053; 80076; 81003; 85025; 99284; J2405; J7030

== ENCOUNTER 2020-10-06 19:26 | Emergency (ER) | payer OTHER ==
[~2020-10-06] VITALS: Ht 172.7 cm; Wt 88.9 kg
[2020-10-06] MEDS ORDERED: ACYCLOVIR800 MG PO (19:48)
[2020-10-06] MEDS ORDERED: TYLENOL # 31 EA PO (19:48)
== END 2020-10-06 20:10 | disposition home or self-care (01) ==
LOC: FSED 19:32
DX: B02.9 Zoster without complications (principal); K64.9 Unspecified hemorrhoids
CPT/HCPCS: 99282

== ENCOUNTER 2021-03-22 09:17 | Emergency (ER) | payer MEDICARE ==
[~2021-03-22] VITALS: Ht 172.7 cm; Wt 94.3 kg
[~2021-03-22 09:17] MED LIST changes: +ACYCLOVIR800 MG PO; +TYLENOL # 31 EA PO
[2021-03-22] MEDS ORDERED: AZITHROMYCIN250 MG PO (09:54)
[2021-03-22] MEDS ORDERED: DEXAMETHASONE SOD PHOS INJ 4 MG/ML SDV ONE (09:59)
[2021-03-22] MEDS ORDERED: DEXAMETHASONE SOD PHOS 10 MG/1 ML VIAL IM ONE (10:00)
== END 2021-03-22 10:05 | disposition home or self-care (01) ==
LOC: FSED 09:36
DX: J01.90 Acute sinusitis, unspecified (principal); J30.9 Allergic rhinitis, unspecified; R05.9 Cough, unspecified
CPT/HCPCS: 96372; 99283; J1100

== ENCOUNTER 2022-06-30 02:26 | Emergency (ER) | payer MEDICARE ==
[~2022-06-30] VITALS: Ht 172.7 cm; Wt 104.3 kg
[~2022-06-30 02:26] MED LIST changes: +AZITHROMYCIN250 MG PO
[2022-06-30] MEDS ORDERED: OFLOXACIN5 ML OT (02:56)
== END 2022-06-30 03:10 | disposition home or self-care (01) ==
LOC: FSED 02:32
DX: H66.91 Otitis media, unspecified, right ear (principal); H72.91 Unspecified perforation of tympanic membrane, right ear
CPT/HCPCS: 99282

== ENCOUNTER 2024-05-05 09:16 | Emergency (ER) | payer SELFPAY ==
[~2024-05-05] VITALS: Ht 167.6 cm; Wt 83.0 kg
[~2024-05-05 09:16] MED LIST changes: +CIPRO500 MG PO; +FLOMAX0.4 MG PO; +OFLOXACIN5 ML OT
[2024-05-05 09:20] VITALS: PULSE 80; RESP 20; TEMP 97.1
[2024-05-05] MEDS ORDERED: NEURONTIN300 MG PO (09:38)
[2024-05-05 09:49] VITALS: BP 125/62; PULSE 73; RESP 20; TEMP 97.3; O2SAT 98
== END 2024-05-05 09:50 | disposition home or self-care (01) ==
LOC: FSED 09:20
DX: R20.2 Paresthesia of skin (principal); G62.9 Polyneuropathy, unspecified; G47.00 Insomnia, unspecified
CPT/HCPCS: 99284

== ENCOUNTER 2024-09-20 22:40 | Emergency (ER) | payer MEDICARE, OTHER ==
[~2024-09-20] VITALS: Ht 170.2 cm; Wt 96.6 kg
[~2024-09-20 22:40] MED LIST changes: +NEURONTIN300 MG PO
[2024-09-20 22:44] VITALS: PULSE 80; RESP 18; TEMP 98.7
[2024-09-20] MEDS ORDERED: PREDNISONE20 MG PO (22:54)
[2024-09-20] MEDS ORDERED: DIPHENHYDRAMINE25 M2 PO (22:54)
[2024-09-20] MEDS ORDERED: NASACORT16.9 ML (22:54)
[2024-09-20 23:02] VITALS: BP 154/72; PULSE 80; RESP 18; TEMP 98.7; O2SAT 97
[2024-09-20] MEDS: DEXAMETHASONE SOD PHOS INJ 4 MG/ML SDV IM ONE (23:09)
== END 2024-09-20 23:12 | disposition home or self-care (01) ==
LOC: FSED 22:44
DX: R05.9 Cough, unspecified (principal); J30.9 Allergic rhinitis, unspecified; R09.81 Nasal congestion; R53.81 Other malaise; G47.00 Insomnia, unspecified
CPT/HCPCS: 99283; J1100